=== PATIENT | female | born 1940 ===

== ENCOUNTER → 2018-10-04 | Outpatient (REF) | payer MEDICARE, OTHER ==
[2018-10-04 15:07] LABS: PLATELET COUNT, AUTOMATED 282 K/uL (150-450)
== END ==
LOC: ZZSTITCHES 14:52
PROVIDERS: ATTEND Physician Assistant
DX: Z01.812 Encounter for preprocedural laboratory examination (principal); H33.002 Unspecified retinal detachment with retinal break, left eye
CPT/HCPCS: 82040; 82247; 82310; 82374; 82435; 82565; 82947; 84075; 84132; 84155; 84295; 84450; 84460; 84520; 85007; 85027